=== PATIENT | female | born 1940 | race Caucasian/White ===

== ENCOUNTER 2019-05-08 | Emergency (ER) | payer OTHER, BC ==
[~2019-05-08] VITALS: Ht 165.1 cm; Wt 58.1 kg
[~2019-05-08] MED LIST: CALCIUM CITRAT250 MG PO; CELEBREX 200 M200 MG PO; DESYREL50 MG PO; LIPITOR20 MG PO; OMEGA-31000 MG PO; PERCOCET PO; SYNTHROID25 MCG PO; TAMBOCOR 100 M100 M1 PO; VITAMIN D-32000 UNIT PO
[2019-05-08 00:44] LABS: ABSOLUTE NEUTROPHILS 4.4 thou/uL (1.4-8.2); BASOPHILS 0.7 % (0.0-2.0); EOSINOPHILS 3.2 % (0.0-3.0); HEMATOCRIT 32.7 % (37.0-47.0); HEMOGLOBIN 11.1 gm/dL (12.0-15.0); MCH 31.7 pg (26.0-34.0); MCHC 33.8 g/dL (28.0-37.0); MCV 93.9 fL (80.0-100.0); MONOCYTES 10.6 % (1.0-8.0); PLATELET COUNT 289 thou/uL (150-400); POLYS 57.5 % (36.0-66.0); RBC 3.48 mil/uL (4.20-5.00); RDW 14.6 % (10.5-14.5); WBC 7.7 thou/uL (4.0-11.0)
[2019-05-08 00:47] LABS: URINE BILIRUBIN NEGATIVE (Negative); URINE BLOOD TRACE (Negative); URINE CLARITY CLEAR; URINE COLOR YELLOW; URINE GLUCOSE-RANDOM* NEGATIVE (Negative); URINE KETONES NEGATIVE (Negative); URINE LEUKOCYTES-REFLEX NEGATIVE (Negative); URINE NITRITE-REFLEX NEGATIVE (Negative); URINE PROTEIN (DIPSTICK) TRACE (Negative); URINE SPECIFIC GRAVITY 1.015 (1.005-1.035); URINE UROBILINOGEN 0.2 E.U./dl (0.2-1.0)
[2019-05-08 00:55] LABS: ANION GAP 12 mmol/L (7-16); BUN 24 mg/dL (7-18); CALCIUM 8.4 mg/dL (8.5-10.1); CHLORIDE 101 mmol/L (98-107); CO2 25 mmol/L (21-32); CREATININE 1.2 mg/dL (0.6-1.0); GLUCOSE 99 mg/dL (74-106); POTASSIUM 4.2 mmol/L (3.5-5.1); SODIUM 138 mmol/L (136-145)
[2019-05-08 00:58] LABS: AMP/METHAMP Negative (Negative); BARBITURATES Negative (Negative); BENZODIAZEPINES Negative (Negative); COCAINE Negative (Negative); METHADONE Negative (Negative); OPIATES POSITIVE (Negative); PCP Negative (Negative)
[2019-05-08] MEDS ORDERED: VITAMIN B-1100 M1 PO (00:58)
[2019-05-08] MEDS ORDERED: TYLENOL325 MG PO (00:58)
[2019-05-08] MEDS ORDERED: CLARITIN10 MG PO (00:59)
[2019-05-08] MEDS ORDERED: CLONIDINE0.1 PO (00:59)
[2019-05-08] MEDS ORDERED: CYMBALTA60 MG PO (01:00)
[2019-05-08] MEDS ORDERED: PROSCAR 5MG TABL5 M1 PO (01:01)
[2019-05-08] MEDS ORDERED: ESTRADIOL (01:01)
[2019-05-08] MEDS ORDERED: LASIX 20 MG TAB20 MG PO (01:02)
[2019-05-08] MEDS ORDERED: FOLIC ACID1 MG PO (01:02)
[2019-05-08] MEDS ORDERED: TORADOL 10 MG T10 MG PO (01:03)
[2019-05-08] MEDS ORDERED: HYDROXYZINE PO (01:03)
[2019-05-08] MEDS ORDERED: OXYBUTYNIN 5 MG5 M2 PO (01:04)
[2019-05-08] MEDS ORDERED: ZUPLENZ4 MG PO (01:04)
[2019-05-08 01:05] LABS: ALBUMIN 2.9 g/dL (3.4-5.0); MAGNESIUM 1.7 mg/dL (1.8-2.4); SGOT 21 U/L (15-37); SGPT 18 U/L (30-65); TOTAL BILIRUBIN 0.3 mg/dL (<0.1-1.0); TOTAL PROTEIN 6.1 g/dL (6.4-8.2); TROPONIN-I <0.06 ng/mL (<0.06)
[2019-05-08] MEDS ORDERED: PROPAFENONE 22225 M1 PO (01:05)
[2019-05-08] MEDS ORDERED: ZANAFLEX4 MG PO (01:06)
[2019-05-08] MEDS ORDERED: ONDANSETRON ODT8 MG PO (02:06)
[2019-05-08 02:30] VITALS: BP 112/64
--- NOTE | 2019-05-08 08:22 | EKG ---
[place] [address] [facility] [employer] ([facility]) [place] [address] ELECTROCARDIOGRAM REPORT Name: CLARA MCKEON Room #: DEP [facility] [id number] ������������������ Admission: 05/08/19 ������������������ Attend Phys: Discharge: 05/08/19 ������������������ Date of : 40 Report #: [id number] ����������������������������������������������������������������� [id number] THIS REPORT FOR: //name// [facility] ED Test Date: 2019-05-08 Test Time: 00:04:57 Pat Name: CLARA MCKEON Department: Room: Gender: F Radiography Technician: : 1940 Requested By: Braden Sosa Order Number: [id number] MD: Joey Glasgow Measurements Intervals [place] Rate: 60 P: DC: QRS: 2 QRSD: 126 T: 25 QT: 448 QTc: 448 Interpretive Statements Atrial fibrillation Nonspecific intraventricular conduction delay Nonspecific ST and T wave abnormality No previous ECG available for comparison Electronically Signed On 05-08-2019 8:22:08 CDT by Joey Glasgow [email or web address] ��������������������������������������������� <ELECTRONICALLY SIGNED> ���������������������������������������� By: Joey Glasgow MD, [facility] ��������������������������������������������� 05/08/19 0822 0004 0004 Joey Glasgow MD, FACC /EPI
== END 2019-05-08 02:33 | disposition home or self-care (01) ==
LOC: ER
PROVIDERS: Emergency Medicine
DX: R55 Syncope and collapse (principal); G89.29 Other chronic pain; M54.5 Low back pain; Z88.8 Allergy status to other drugs, medicaments and biological substances; Z88.6 Allergy status to analgesic agent; Z79.899 Other long term (current) drug therapy; Z90.89 Acquired absence of other organs; Z98.890 Other specified postprocedural states